=== PATIENT | female | born 1950 | race Caucasian/White ===

== ENCOUNTER 2018-10-03 09:14 | Emergency (ER) | payer OTHER ==
[~2018-10-03] VITALS: Ht 149.9 cm; Wt 63.0 kg
[2018-10-03 09:31] LABS: URINE BILIRUBIN NEGATIVE (Negative); URINE BLOOD 2+ (Negative); URINE CLARITY CLEAR; URINE COLOR YELLOW; URINE GLUCOSE-RANDOM* NEGATIVE (Negative); URINE KETONES NEGATIVE (Negative); URINE NITRITE-REFLEX NEGATIVE (Negative); URINE PROTEIN (DIPSTICK) NEGATIVE (Negative); URINE SPECIFIC GRAVITY <= 1.005 (1.005-1.035); URINE UROBILINOGEN 0.2 E.U./dl (0.2-1.0)
[2018-10-03 09:34] LABS: URINE LEUKOCYTES-REFLEX 2+ (Negative)
[2018-10-03] MEDS ORDERED: KEFLEX500 M1 PO (09:46)
[2018-10-03] MEDS ORDERED: PYRIDIUM200 MG PO (09:46)
[2018-10-03 09:55] VITALS: BP 146/78
[2018-10-03 10:04] LABS: CASTS None Seen /LPF (None Seen); CRYSTALS None Seen /LPF (None Seen); SQUAMOUS 4-10 Moderate /LPF (0-3); URINE RBC 3-10 Few /HPF (0-2)
== END 2018-10-03 09:57 | disposition home or self-care (01) ==
LOC: ER 09:14
PROVIDERS: Emergency Medicine
DX: N30.00 Acute cystitis without hematuria (principal); E78.5 Hyperlipidemia, unspecified; Z90.710 Acquired absence of both cervix and uterus